=== PATIENT | male | born 1975 | race American Indian/Alaskan Native ===

== ENCOUNTER 2016-10-28 09:05 | Emergency (ER) | payer BC ==
[2016-10-28 09:40] VITALS: BP 139/98
[2016-10-28] MEDS ORDERED: BOOSTRIX IM ONE (11:56)
--- NOTE | 2016-10-28 12:00 | Emergency Department Report ---
- General Chief complaint: Extremity Injury, Upper Stated complaint: INFECTED RIGHT INDEX FINGER Time Seen by Provider: 10/28/16 11:54 Source: patient Mode of arrival: Ambulatory Limitations: No Limitations - History of Present Illness Initial comments: Patient reports he injured his right index finger two weeks ago while working on an automobile. He c/o an area that looks infected. 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) Associated symptoms: athralgias Treatments Prior to Arrival: none - Related Data Previous Rx's Medication Instructions Recorded Last Taken Type Cephalexin [Keflex] 500 mg PO Q12HR #20 cap 10/28/16 Unknown Rx Ibuprofen [Motrin 800 MG tab] 800 mg PO Q8HR PRN #30 tablet 10/28/16 Unknown Rx Allergies Allergy/AdvReac Type Severity Reaction Status Date / Time No Known Allergies Allergy Unverified 10/28/16 09:34 Abscess Boil HPI - HPI Chief Complaint: Extremity Injury, Upper Stated Complaint: INFECTED RIGHT INDEX FINGER Home Medications: Previous Rx's Medication Instructions Recorded Last Taken Type Cephalexin [Keflex] 500 mg PO Q12HR #20 cap 10/28/16 Unknown Rx Ibuprofen [Motrin 800 MG tab] 800 mg PO Q8HR PRN #30 tablet 10/28/16 Unknown Rx Allergies/Adverse Reactions: Allergies Allergy/AdvReac Type Severity Reaction Status Date / Time No Known Allergies Allergy Unverified 10/28/16 09:34 ED Review of Systems ROS: Stated complaint: INFECTED RIGHT INDEX FINGER Other details as noted in HPI Constitutional: denies: chills, diaphoresis, fever, malaise, weakness Respiratory: denies: cough, orthopnea, shortness of breath, SOB with exertion, SOB at rest, stridor, wheezing Cardiovascular: denies: chest pain, palpitations, dyspnea on exertion, orthopnea , edema, syncope, paroxysmal nocturnal dyspnea Skin: rash (.5 cm erythema). denies: lesions, change in color, change in hair/ nails, pruritus Hematological/Lymphatic: denies: easy bleeding, easy bruising, swollen glands ED Past Medical Hx - Past Medical History Previous Medical History?: No - Surgical History Additional Surgical History: Hernia - Social History Smoking Status: Current Every Day Smoker Substance Use Type: None - Medications Home Medications: Home Medications Medication Instructions Recorded Confirmed Last Taken Type Cephalexin [Keflex] 500 mg PO Q12HR #20 cap 10/28/16 Unknown Rx Ibuprofen [Motrin 800 MG tab] 800 mg PO Q8HR PRN #30 tablet 10/28/16 Unknown Rx ED Physical Exam - General Limitations: No Limitations General appearance: alert, in no apparent distress - ENT ENT exam: Present: normal exam, mucous membranes moist. Absent: mucous membranes dry - Respiratory Respiratory exam: Present: normal lung sounds bilaterally. Absent: respiratory distress, wheezes, rales, rhonchi, stridor, chest wall tenderness, accessory muscle use, decreased breath sounds, prolonged expiratory - Cardiovascular Cardiovascular Exam: Present: regular rate, normal rhythm, normal heart sounds. Absent: systolic murmur, diastolic murmur, rubs, gallop - Neurological Exam Neurological exam: Present: alert, oriented X3, CN II-XII intact, normal gait, motor sensory deficit, reflexes normal - Skin Skin exam: Present: warm, dry, intact, normal color, erythema (0.5 cm erythema to proximal right index metaphalanx). Absent: rash, cyanosis, diaphoretic, urticaria, vesicles, petechiae, pallor, abrasion, ecchymosis ED Course Vital Signs 10/28/16 09:34 Temperature 97.6 F Pulse Rate 73 Respiratory 20 Rate Blood Pressure 139/98 O2 Sat by Pulse 96 Oximetry - Reevaluation(s) Reevaluation #1: 10/28/16 11:57 tetanus vaccination ordered ED Medical Decision Making - Lab Data Vital Signs 10/28/16 09:34 Temperature 97.6 F Pulse Rate 73 Respiratory 20 Rate Blood Pressure 139/98 O2 Sat by Pulse 96 Oximetry - Medical Decision Making During the course of ED, tetanus vaccination was ordered. He was sent home with prescription for Ibuprofen and Keflex, instructed to do warm soaks three times a day, follow up with the selective referral given at discharge, he verbalized understanding - Differential Diagnosis Cellulitis, Abscess Critical care attestation.: If time is entered above; I have spent that time in minutes in the direct care of this critically ill patient, excluding procedure time. ED Disposition Clinical Impression: Cellulitis Qualifiers: Site of cellulitis: extremity Site of cellulitis of extremity: finger Laterality: right Qualified Code(s): L03.011 - Cellulitis of right finger Disposition: DISCHARGED TO HOME OR SELFCARE Is pt being admited?: No Does the pt Need Aspirin: No Condition: Stable Instructions: Cellulitis (ED) Additional Instructions: Take medication as directed. Do warm soaks for three times a day. Follow up with the selective referral given at discharge. Return back to the ED for worsening symptoms or concerns Prescriptions: Cephalexin [Keflex] 500 mg PO Q12HR #20 cap Ibuprofen [Motrin 800 MG tab] 800 mg PO Q8HR PRN #30 tablet PRN Reason: Pain Referrals: PRIMARY CARE, [Primary Care Provider] - 3-5 Days [facility] [Outside] - 3-5 Days Forms: Work/School Release Form(ED)
== END 2016-10-28 12:26 | disposition home or self-care (01) ==
LOC: ED 09:05
DX: L03.011 Cellulitis of right finger (principal); F17.200 Nicotine dependence, unspecified, uncomplicated
CPT/HCPCS: 90471; 90715